=== PATIENT | male | born 2000 | race Two or more races ===

== ENCOUNTER 2024-06-08 03:14 | Emergency (ER) | payer OTHER ==
[~2024-06-08] VITALS: Ht 177.8 cm; Wt 95.3 kg
[2024-06-08] MEDS ORDERED: ACETAMINOPHEN 500 MG GEL..CAP PO STA (05:41)
[2024-06-08] MEDS ORDERED: GUAIFENESIN 200 MG/10 ML BLIST.PACK PO STA (05:41)
[2024-06-08] MEDS ORDERED: ACETAMINOPHEN 500 MG GEL..CAP PO ONE (05:45)
[2024-06-08] MEDS ORDERED: GUAIFENESIN 200 MG/10 ML BLIST.PACK PO ONE (05:45)
[2024-06-08 06:04] LABS: HEMATOCRIT 45.5 % (39.0-48.0); HEMOGLOBIN 15.5 g/dL (13-16.00); MEAN CELL VOLUME 87.3 fL (80.0-100.00); MEAN CORPUSCULAR HEMOGLOBIN 29.7 pg (27.00-32.0); PLATELET COUNT 272 K/uL (150-450); RED BLOOD COUNT 5.21 M/uL (4.00-6.00); RED CELL DISTRIBUTION WIDTH 12.8 % (11.5-14.5)
[2024-06-08] MEDS ORDERED: DOLOGESIC-DF 51 EACH PO (07:44)
[2024-06-08] MEDS ORDERED: ZYNCOF 20-400120 ML PO (07:44)
[2024-06-08] MEDS ORDERED: PHENAGIL TABLE1 EACH PO (07:44)
== END 2024-06-08 07:56 ==
LOC: ER 03:17
PROVIDERS: General Practice
DX: B34.9 Viral infection, unspecified (principal); Z20.822 Contact with and (suspected) exposure to COVID-19